=== PATIENT | male | born 1990 ===

== ENCOUNTER → 2024-04-29 | Outpatient (REF) | payer OTHER ==
[2024-04-29 10:51] LABS: SEMEN APPEARANCE OPAQUE (OPAQUE); SEMEN VISCOSITY VISCOUS (LIQUID); SEMEN VOLUME 0.8 ml (2.0-5.0); SEMEN pH 8.5 (7.0-8.0)
[2024-04-29 10:52] LABS: WBC CONCENTRATION <=1 M/ml (<=1 M/ml)
== END ==
LOC: M LAB REF 10:30
DX: Z31.41 Encounter for fertility testing (principal)